=== PATIENT | female | born 1960 | race Hispanic/Latino ===

== ENCOUNTER 2017-08-08 21:20 | Inpatient (IN) | payer MEDICAID ==
[~2017-08-08] VITALS: Ht 154.9 cm; Wt 70.8 kg
[2017-08-08 22:19] LABS: BASOPHILS % (AUTO) 0.6 % (0.0-5.0); EOSINOPHILS % (AUTO) 1.2 % (0.0-8.0); LYMPHOCYTES % (AUTO) 21.8 % (21.0-51.0); MEAN CORPUSCULAR HEMOGLOBIN 28.5 pg (27.0-33.0); MEAN CORPUSCULAR HGB CONC 31.8 g/dL (32.0-36.0); MEAN CORPUSCULAR VOLUME 89.8 fL (79-99); MONOCYTES % (AUTO) 10.1 % (3.0-13.0); NEUTROPHILS % (AUTO) 66.3 % (40.0-77.0); PLATELET COUNT (AUTO) 83 K/uL (130-400); RED BLOOD CELL COUNT(AUTO) 1.98 MIL/uL (4.00-5.50); RED CELL DISTRIBUTION WIDTH 22.2 % (11.0-15.5); WHITE BLOOD COUNT (AUTO) 6.5 K/uL (4.8-10.8)
[2017-08-08 22:23] LABS: HEMATOCRIT 17.8 % (36-48)
[2017-08-08 22:32] LABS: CREATININE 0.8 mg/dL (0.5-1.5); POTASSIUM 3.2 mmol/L (3.5-5.1)
[2017-08-08 22:33] LABS: INR 1.61 (0.85-1.15); PROTHROMBIN TIME 16.7 SEC (9.6-11.6)
[2017-08-08 22:36] LABS: ALBUMIN 1.6 g/dL (3.5-5.0); TOTAL PROTEIN, SERUM 7.2 g/dL (6.0-8.3)
[2017-08-08] MEDS ORDERED: MORPHINE SULFATE 2 MG/ML 1ML SYG ONE (22:39)
[2017-08-08] MEDS ORDERED: ONDANSETRON HCL 4 MG/2 ML VIAL ONE (22:39)
[2017-08-08 23:19] LABS: BAND NEUTROPHILS % (MANUAL) 4 % (0-2); BASOPHILS % (MANUAL) 1 % (0-2); EOSINOPHILS % (MANUAL) 2 % (1-6); LYMPHOCYTES % (MANUAL) 17 % (22-44); MAN.DIFF COMMENT-IMPRESSION MANUAL DIFFERENTIAL; MONOCYTES % (MANUAL) 7 % (2-9); REACTIVE LYMPHOCYTES 2 % (0-0); SEGMENTED NEUTROPHILS % 67 % (40-70)
[2017-08-08 23:20] LABS: PLATELET MORPHOLOGY COMMENT DECREASED
[2017-08-08] MEDS ORDERED: SODIUM CHLORIDE 0.9% 1000ML 1,000 ML IV ONE (23:47)
[2017-08-09] MEDS ORDERED: POTASSIUM CHLORIDE 20 MEQ ERTAB PO ONE (00:49)
[2017-08-09 00:58] LABS: APPEARANCE,URINE Turbid (CLEAR); BILIRUBIN,URINE Negative (NEGATIVE); COLOR,URINE Dark Yellow (YELLOW); GLUCOSE, URINE (UA) Negative (NEGATIVE); KETONES,URINE Negative (NEGATIVE); LEUKOCYTE ESTERASE ,URINE Large (NEGATIVE); NITRATE,URINE Positive (NEGATIVE); OCCULT BLOOD,URINE Large (NEGATIVE); PROTEIN,URINE Negative (NEGATIVE)
[2017-08-09 01:04] LABS: BACTERIA,URINE Many /HPF (None Seen); MUCUS,URINE Rare LPF (None Seen); SQUAMOUS EPITHELIAL CELL,UR Few /LPF (0-2)
[2017-08-09 01:05] LABS: AMORPHOUS SEDIMENT,UR Few /LPF (None Seen)
[2017-08-09 03:00] VITALS: BP 113/60
[2017-08-09] MEDS ORDERED: TRAZ-144 PO (03:37)
[2017-08-09] MEDS ORDERED: SPIR25TA4 PO (03:37)
[2017-08-09] MEDS ORDERED: PROP40TA7 PO (03:37)
[2017-08-09] MEDS ORDERED: HYDR50SY PO (03:37)
[2017-08-09] MEDS ORDERED: FURO40TA5 PO (03:37)
[2017-08-09] MEDS ORDERED: LEVO50 PO (03:37)
[2017-08-09] MEDS: ONDANSETRON HCL 4 MG/2 ML VIAL IVP PRN (04:28)
[2017-08-09] MEDS: SODIUM CHLORIDE 0.9% 1000ML 1,000 ML IV SCH ×2 (04:29→10:10)
[2017-08-09] MEDS ORDERED: SODIUM CHLORIDE 0.9% 1000ML 1,000 ML IV SCH (04:30)
[2017-08-09] MEDS ORDERED: MORPHINE SULFATE 2 MG/ML 1ML SYG IVP PRN (04:30)
[2017-08-09 06:07] LABS: HEMATOCRIT 24.4 % (36-48); MEAN CORPUSCULAR HEMOGLOBIN 28.3 pg (27.0-33.0); MEAN CORPUSCULAR HGB CONC 33.5 g/dL (32.0-36.0); MEAN CORPUSCULAR VOLUME 84.5 fL (79-99); PLATELET COUNT (AUTO) 81 K/uL (130-400); RED BLOOD CELL COUNT(AUTO) 2.89 MIL/uL (4.00-5.50); WHITE BLOOD COUNT (AUTO) 6.7 K/uL (4.8-10.8)
[2017-08-09 06:18] LABS: ALBUMIN 1.4 g/dL (3.5-5.0); BILIRUBIN,TOTAL 5.2 mg/dL (0.2-1.0); CREATININE 0.7 mg/dL (0.5-1.5); POTASSIUM 3.5 mmol/L (3.5-5.1); TOTAL PROTEIN, SERUM 6.6 g/dL (6.0-8.3)
[2017-08-09 08:00] VITALS: BP 95/54
[2017-08-09] MEDS ORDERED: PANTOPRAZOLE 40 MG/VIAL IVP SCH (09:00)
[2017-08-09] MEDS ORDERED: MORPHINE SULFATE 4 MG/1ML SYG ONE (09:34)
[2017-08-09 11:00] VITALS: BP 102/54
[2017-08-09] MEDS ORDERED: OCTREOTIDE ACETATE 100 MCG/ML AMP SQ SCH (12:15)
[2017-08-09 12:35] LABS: HEMATOCRIT 26.6 % (36-48)
[2017-08-09] MEDS: PANTOPRAZOLE SODIUM 80 MG in SODIUM CHLORIDE 0.9% 100 ML IV SCH (13:02)
[2017-08-09] MEDS: OCTREOTIDE ACETATE 1,000 MCG in SODIUM CHLORIDE 0.9% 95 ML IV SCH (13:03)
[2017-08-09] MEDS: PSYLLIUM SEED 1 EACH PACKET PO SCH ×2 (14:56→23:20)
[2017-08-09 16:00] VITALS: BP 96/49
[2017-08-09] MEDS: MORPHINE SULFATE 4 MG/1ML SYG IVP PRN (19:34)
[2017-08-09 20:00] VITALS: BP 106/64
[2017-08-09 20:16] LABS: HEMATOCRIT 24.6 % (36-48)
[2017-08-09] MEDS: HYDROCORTISONE 25 MG SUPPOSITORY PR SCH (23:20)
[2017-08-10] VITALS (16 sets, daily range): BP systolic 90–117; BP diastolic 44–68
[2017-08-10] MEDS: SODIUM CHLORIDE 0.9% 1000ML 1,000 ML IV SCH ×2 (01:48→20:30)
[2017-08-10] MEDS: MORPHINE SULFATE 4 MG/1ML SYG IVP PRN ×3 (06:19→23:26)
[2017-08-10 07:24] LABS: HEMATOCRIT 23.9 % (36-48); MEAN CORPUSCULAR HEMOGLOBIN 27.6 pg (27.0-33.0); MEAN CORPUSCULAR HGB CONC 32.5 g/dL (32.0-36.0); MEAN CORPUSCULAR VOLUME 84.9 fL (79-99); PLATELET COUNT (AUTO) 83 K/uL (130-400); RED BLOOD CELL COUNT(AUTO) 2.82 MIL/uL (4.00-5.50); RED CELL DISTRIBUTION WIDTH 24.3 % (11.0-15.5); WHITE BLOOD COUNT (AUTO) 6.9 K/uL (4.8-10.8)
[2017-08-10 08:07] LABS: CREATININE 0.8 mg/dL (0.5-1.5)
[2017-08-10 08:09] LABS: BASOPHILS % (MANUAL) 3 % (0-2); EOSINOPHILS % (MANUAL) 1 % (1-6); LYMPHOCYTES % (MANUAL) 8 % (22-44); MAN.DIFF COMMENT-IMPRESSION MANUAL DIFFERENTIAL; MONOCYTES % (MANUAL) 2 % (2-9); PLATELET MORPHOLOGY COMMENT DECREASED; SEGMENTED NEUTROPHILS % 86 % (40-70)
[2017-08-10] MEDS: PANTOPRAZOLE SODIUM 80 MG in SODIUM CHLORIDE 0.9% 100 ML IV SCH (08:33)
[2017-08-10] MEDS: OCTREOTIDE ACETATE 1,000 MCG in SODIUM CHLORIDE 0.9% 95 ML IV SCH (08:35)
[2017-08-10] MEDS: PSYLLIUM SEED 1 EACH PACKET PO SCH ×3 (09:00→23:19)
[2017-08-10] MEDS ORDERED: PROPOFOL 10 MG/ML 20ML VIAL IV ONE (11:36)
[2017-08-10 12:30] LABS: HEMATOCRIT 25.3 % (36-48)
[2017-08-10] MEDS ORDERED: [UNRECOGNIZED DRUG - CODE] RC (13:12)
[2017-08-10] MEDS ORDERED: HYDROCORTISONE/PRAMOXINE 10 GM FOAM RC PRN (13:15)
[2017-08-10] MEDS: HYDROCORTISONE 25 MG SUPPOSITORY PR SCH ×2 (14:01→23:19)
[2017-08-10] MEDS: LEVOFLOXACIN 500 MG/D5W 100 ML 100 ML IV SCH (14:01)
[2017-08-10] MEDS: LACTULOSE 20 GM/30 ML UDCUP PO SCH ×2 (14:01→23:19)
[2017-08-10] MEDS ORDERED: PREG75 PO (16:13)
[2017-08-10 20:00] LABS: HEMATOCRIT 25.3 % (36-48)
[2017-08-10] MEDS: ONDANSETRON HCL 4 MG/2 ML VIAL IVP PRN (23:26)
[2017-08-11] VITALS (7 sets, daily range): BP systolic 116–129; BP diastolic 61–75
[2017-08-11] MEDS: SODIUM CHLORIDE 0.9% 1000ML 1,000 ML IV SCH ×2 (03:08→20:48)
[2017-08-11] MEDS: LACTULOSE 20 GM/30 ML UDCUP PO SCH ×4 (05:38→20:48)
[2017-08-11] MEDS: MORPHINE SULFATE 4 MG/1ML SYG IVP PRN ×2 (05:49→11:48)
[2017-08-11] MEDS: ONDANSETRON HCL 4 MG/2 ML VIAL IVP PRN ×3 (06:32→20:53)
[2017-08-11 06:57] LABS: MEAN CORPUSCULAR HEMOGLOBIN 29.2 pg (27.0-33.0); MEAN CORPUSCULAR VOLUME 85.6 fL (79-99); NUCLEATED RED BLOOD CELLS 0.1 % (0.0-0.19); PLATELET COUNT (AUTO) 97 K/uL (130-400); RED BLOOD CELL COUNT(AUTO) 2.92 MIL/uL (4.00-5.50); RED CELL DISTRIBUTION WIDTH 24.2 % (11.0-15.5); WHITE BLOOD COUNT (AUTO) 8.9 K/uL (4.8-10.8)
[2017-08-11 07:20] LABS: INR 1.64 (0.85-1.15); PROTHROMBIN TIME 17.1 SEC (9.6-11.6)
[2017-08-11] MEDS: PSYLLIUM SEED 1 EACH PACKET PO SCH ×3 (09:00→20:47)
[2017-08-11 09:34] LABS: ALBUMIN 1.6 g/dL (3.5-5.0); BILIRUBIN,TOTAL 5.3 mg/dL (0.2-1.0); CREATININE 0.8 mg/dL (0.5-1.5); POTASSIUM 3.4 mmol/L (3.5-5.1); TOTAL PROTEIN, SERUM 7.4 g/dL (6.0-8.3)
[2017-08-11] MEDS: PANTOPRAZOLE SODIUM 40 MG TABLET.DR PO SCH (10:32)
[2017-08-11] MEDS: HYDROCORTISONE 25 MG SUPPOSITORY PR SCH ×2 (10:32→20:48)
[2017-08-11] MEDS: LEVOFLOXACIN 500 MG/D5W 100 ML 100 ML IV SCH (10:40)
[2017-08-11 11:43] LABS: HEMATOCRIT 25.7 % (36-48)
[2017-08-11] MEDS ORDERED: WITCH HAZEL 1 PAD TP PRN (13:00)
[2017-08-11] MEDS ORDERED: HYDROMORPHONE 1 MG/1 ML AMP IVP PRN (13:15)
[2017-08-11] MEDS: HYDROMORPHONE HCL 0.5 MG/0.5 ML ML IVP PRN ×2 (14:17→18:51)
[2017-08-11 19:43] LABS: HEMATOCRIT 26.5 % (36-48)
[2017-08-12] MEDS: HYDROMORPHONE HCL 0.5 MG/0.5 ML ML IVP PRN ×5 (02:29→21:54)
[2017-08-12 03:15] VITALS: BP 130/76
[2017-08-12 03:18] LABS: HEMATOCRIT 25.7 % (36-48); MEAN CORPUSCULAR HEMOGLOBIN 27.7 pg (27.0-33.0); MEAN CORPUSCULAR HGB CONC 32.2 g/dL (32.0-36.0); PLATELET COUNT (AUTO) 84 K/uL (130-400); RED BLOOD CELL COUNT(AUTO) 2.98 MIL/uL (4.00-5.50); RED CELL DISTRIBUTION WIDTH 24.8 % (11.0-15.5); WHITE BLOOD COUNT (AUTO) 10.8 K/uL (4.8-10.8)
[2017-08-12 03:35] LABS: CREATININE 0.9 mg/dL (0.5-1.5); POTASSIUM 3.1 mmol/L (3.5-5.1)
[2017-08-12] MEDS: LACTULOSE 20 GM/30 ML UDCUP PO SCH ×3 (04:46→20:40)
[2017-08-12 04:53] LABS: BAND NEUTROPHILS % (MANUAL) 13 % (0-2); LYMPHOCYTES % (MANUAL) 12 % (22-44); MAN.DIFF COMMENT-IMPRESSION MANUAL DIFFERENTIAL; MONOCYTES % (MANUAL) 4 % (2-9); PLATELET MORPHOLOGY COMMENT DECREASED; SEGMENTED NEUTROPHILS % 71 % (40-70)
[2017-08-12] MEDS: ONDANSETRON HCL 4 MG/2 ML VIAL IVP PRN ×3 (06:48→21:54)
[2017-08-12 08:00] VITALS: BP 123/74
[2017-08-12] MEDS: PANTOPRAZOLE SODIUM 40 MG TABLET.DR PO SCH (09:53)
[2017-08-12] MEDS: PSYLLIUM SEED 1 EACH PACKET PO SCH ×3 (09:53→20:40)
[2017-08-12] MEDS: HYDROCORTISONE 25 MG SUPPOSITORY PR SCH ×3 (09:53→21:00)
[2017-08-12 11:00] VITALS: BP 120/71
[2017-08-12 11:06] LABS: HEMATOCRIT 25.7 % (36-48)
[2017-08-12] MEDS: LEVOFLOXACIN 500 MG/D5W 100 ML 100 ML IV SCH (11:23)
[2017-08-12] MEDS ORDERED: POTASSIUM CHLORIDE 10% ELIXIR 20 MEQ/15 ML UDCUP PO PRN (12:30)
[2017-08-12] MEDS: SODIUM CHLORIDE 0.9% 1000ML 1,000 ML IV SCH ×2 (13:11→20:40)
[2017-08-12 16:00] VITALS: BP 127/62
[2017-08-12] MEDS ORDERED: SODIUM CHLORIDE 0.9% 1000ML 1,000 ML IV ONE (16:11)
[2017-08-12] MEDS: POTASSIUM CHLORIDE 20MEQ/100ML 100 ML IV PRN ×2 (17:00→20:42)
[2017-08-12] MEDS: LIDOCAINE HCL-MPF 1% 2ML VIAL IVP PRN (17:00)
[2017-08-12 19:15] VITALS: BP 122/56
[2017-08-12 19:45] LABS: HEMATOCRIT 26.2 % (36-48)
[2017-08-12 23:15] VITALS: BP 118/58
[2017-08-13 03:15] VITALS: BP 122/58
[2017-08-13] MEDS: HYDROMORPHONE HCL 0.5 MG/0.5 ML ML IVP PRN ×6 (04:19→21:48)
[2017-08-13] MEDS: ONDANSETRON HCL 4 MG/2 ML VIAL IVP PRN ×2 (04:19→13:54)
[2017-08-13] MEDS: LACTULOSE 20 GM/30 ML UDCUP PO SCH ×3 (05:30→21:30)
[2017-08-13 06:27] LABS: BASOPHILS % (AUTO) 0.3 % (0.0-5.0); EOSINOPHILS % (AUTO) 0.6 % (0.0-8.0); HEMATOCRIT 24.8 % (36-48); LYMPHOCYTES % (AUTO) 12.6 % (21.0-51.0); MEAN CORPUSCULAR HEMOGLOBIN 29.4 pg (27.0-33.0); MEAN CORPUSCULAR HGB CONC 33.6 g/dL (32.0-36.0); MEAN CORPUSCULAR VOLUME 87.3 fL (79-99); MONOCYTES % (AUTO) 9.2 % (3.0-13.0); NEUTROPHILS % (AUTO) 77.3 % (40.0-77.0); PLATELET COUNT (AUTO) 94 K/uL (130-400); RED BLOOD CELL COUNT(AUTO) 2.84 MIL/uL (4.00-5.50); RED CELL DISTRIBUTION WIDTH 25.2 % (11.0-15.5); WHITE BLOOD COUNT (AUTO) 8.2 K/uL (4.8-10.8)
[2017-08-13 06:39] LABS: ALBUMIN 1.6 g/dL (3.5-5.0); BILIRUBIN,DIRECT 3.4 mg/dL (0.0-0.3); BILIRUBIN,TOTAL 4.9 mg/dL (0.2-1.0); CREATININE 0.9 mg/dL (0.5-1.5)
[2017-08-13] MEDS: PSYLLIUM SEED 1 EACH PACKET PO SCH ×3 (09:00→21:00)
[2017-08-13] MEDS: PANTOPRAZOLE SODIUM 40 MG TABLET.DR PO SCH (09:00)
[2017-08-13] MEDS: HYDROCORTISONE 25 MG SUPPOSITORY PR SCH ×2 (09:00→21:40)
[2017-08-13] MEDS: LEVOFLOXACIN 500 MG/D5W 100 ML 100 ML IV SCH (10:54)
[2017-08-13] MEDS ORDERED: PROMETHAZINE HCL 25 MG/ML 1ML AMPULE IM PRN (11:30)
[2017-08-13 11:56] VITALS: BP 142/71
[2017-08-13] MEDS: METOCLOPRAMIDE 10 MG/2 ML VIAL IVP SCH ×3 (13:55→21:40)
[2017-08-13 16:05] VITALS: BP 137/83
[2017-08-13] MEDS: SODIUM CHLORIDE 0.9% 1000ML 1,000 ML IV SCH (16:09)
[2017-08-13 19:14] VITALS: BP 113/70
[2017-08-13 23:15] VITALS: BP 115/75
[2017-08-14] MEDS: ONDANSETRON HCL 4 MG/2 ML VIAL IVP PRN ×2 (00:26→09:06)
[2017-08-14] MEDS: HYDROMORPHONE HCL 0.5 MG/0.5 ML ML IVP PRN ×2 (01:54→12:19)
[2017-08-14 03:00] VITALS: BP 115/66
[2017-08-14] MEDS: SODIUM CHLORIDE 0.9% 1000ML 1,000 ML IV SCH ×2 (03:20→17:30)
[2017-08-14 03:41] LABS: BASOPHILS % (AUTO) 0.4 % (0.0-5.0); EOSINOPHILS % (AUTO) 0.4 % (0.0-8.0); HEMATOCRIT 26.8 % (36-48); LYMPHOCYTES % (AUTO) 10.5 % (21.0-51.0); MEAN CORPUSCULAR HEMOGLOBIN 27.4 pg (27.0-33.0); MEAN CORPUSCULAR HGB CONC 31.9 g/dL (32.0-36.0); MEAN CORPUSCULAR VOLUME 85.8 fL (79-99); MONOCYTES % (AUTO) 11.7 % (3.0-13.0); NUCLEATED RED BLOOD CELLS 0.1 % (0.0-0.19); PLATELET COUNT (AUTO) 124 K/uL (130-400); RED BLOOD CELL COUNT(AUTO) 3.12 MIL/uL (4.00-5.50); RED CELL DISTRIBUTION WIDTH 26.2 % (11.0-15.5); WHITE BLOOD COUNT (AUTO) 11.9 K/uL (4.8-10.8)
[2017-08-14 03:54] LABS: ALBUMIN 1.7 g/dL (3.5-5.0); BILIRUBIN,DIRECT 4.3 mg/dL (0.0-0.3); BILIRUBIN,TOTAL 5.8 mg/dL (0.2-1.0); CREATININE 0.9 mg/dL (0.5-1.5); POTASSIUM 3.9 mmol/L (3.5-5.1); TOTAL PROTEIN, SERUM 7.6 g/dL (6.0-8.3)
[2017-08-14] MEDS: METOCLOPRAMIDE 10 MG/2 ML VIAL IVP SCH ×4 (04:17→21:30)
[2017-08-14] MEDS: LACTULOSE 20 GM/30 ML UDCUP PO SCH ×3 (04:17→21:30)
[2017-08-14] MEDS ORDERED: IOPAMIDOL-370 75 ML VIAL IV ONE (07:05)
[2017-08-14] MEDS ORDERED: DIATR MEGLU/DIATRIZOATE SODIUM 30 ML BOTTLE PO ONE (07:05)
[2017-08-14 08:00] VITALS: BP 146/81
[2017-08-14] MEDS: PANTOPRAZOLE SODIUM 40 MG TABLET.DR PO SCH (08:38)
[2017-08-14] MEDS: PSYLLIUM SEED 1 EACH PACKET PO SCH ×3 (08:38→21:31)
[2017-08-14] MEDS: HYDROCORTISONE 25 MG SUPPOSITORY PR SCH ×2 (08:39→21:31)
[2017-08-14] MEDS: LEVOFLOXACIN 500 MG/D5W 100 ML 100 ML IV SCH (08:40)
[2017-08-14 12:00] VITALS: BP 113/78
[2017-08-14 16:00] VITALS: BP 120/84
[2017-08-14 19:00] VITALS: BP 132/73
[2017-08-14] MEDS: METRONIDAZOLE 500MG/100ML BAG 100 ML IV SCH ×2 (19:39→21:31)
[2017-08-14] MEDS: SPIRONOLACTONE 25 MG TAB PO SCH (21:30)
[2017-08-14] MEDS: RIFAXIMIN 550 MG TABLET PO SCH (21:30)
[2017-08-14] MEDS: HYDROCODONE/ACETAMINOPHEN 5/325 MG TAB PO PRN (21:30)
[2017-08-14 23:00] VITALS: BP 114/66
[2017-08-15] MEDS ORDERED: HYDROMORPHONE HCL 2 MG/ML VIAL ONE (01:35)
[2017-08-15 03:30] VITALS: BP 102/54
[2017-08-15 03:48] LABS: CREATININE 0.8 mg/dL (0.5-1.5); POTASSIUM 3.8 mmol/L (3.5-5.1)
[2017-08-15] MEDS: LACTULOSE 20 GM/30 ML UDCUP PO SCH ×3 (05:38→20:23)
[2017-08-15] MEDS: LEVOTHYROXINE 50 MCG TABLET PO SCH (05:38)
[2017-08-15] MEDS: METRONIDAZOLE 500MG/100ML BAG 100 ML IV SCH ×3 (05:38→20:23)
[2017-08-15] MEDS: SODIUM CHLORIDE 0.9% 1000ML 1,000 ML IV SCH ×2 (06:18→13:26)
[2017-08-15 06:23] LABS: BASOPHILS % (AUTO) 0.1 % (0.0-5.0); EOSINOPHILS % (AUTO) 0.5 % (0.0-8.0); HEMATOCRIT 23.1 % (36-48); LYMPHOCYTES % (AUTO) 13.2 % (21.0-51.0); MEAN CORPUSCULAR HEMOGLOBIN 28.4 pg (27.0-33.0); MEAN CORPUSCULAR HGB CONC 32.8 g/dL (32.0-36.0); MEAN CORPUSCULAR VOLUME 86.6 fL (79-99); MONOCYTES % (AUTO) 8.7 % (3.0-13.0); NEUTROPHILS % (AUTO) 77.5 % (40.0-77.0); PLATELET COUNT (AUTO) 75 K/uL (130-400); RED BLOOD CELL COUNT(AUTO) 2.67 MIL/uL (4.00-5.50); RED CELL DISTRIBUTION WIDTH 27.3 % (11.0-15.5); WHITE BLOOD COUNT (AUTO) 12.3 K/uL (4.8-10.8)
[2017-08-15] MEDS: METOCLOPRAMIDE 10 MG/2 ML VIAL IVP SCH ×4 (06:35→20:21)
[2017-08-15 08:00] VITALS: BP 107/55
[2017-08-15] MEDS: PANTOPRAZOLE SODIUM 40 MG TABLET.DR PO SCH (09:17)
[2017-08-15] MEDS: PSYLLIUM SEED 1 EACH PACKET PO SCH ×3 (09:18→20:21)
[2017-08-15] MEDS: HYDROCORTISONE 25 MG SUPPOSITORY PR SCH ×2 (09:18→20:21)
[2017-08-15] MEDS: SPIRONOLACTONE 25 MG TAB PO SCH ×2 (09:19→20:21)
[2017-08-15] MEDS: RIFAXIMIN 550 MG TABLET PO SCH ×2 (09:20→20:21)
[2017-08-15] MEDS: HYDROCODONE/ACETAMINOPHEN 5/325 MG TAB PO PRN ×3 (09:20→21:46)
[2017-08-15] MEDS: FUROSEMIDE 40 MG TABLET PO SCH (09:22)
[2017-08-15] MEDS: LEVOFLOXACIN 500 MG/D5W 100 ML 100 ML IV SCH (09:44)
[2017-08-15 11:27] VITALS: BP 113/57
[2017-08-15 16:00] VITALS: BP 123/64
[2017-08-15 20:00] VITALS: BP 100/46
[2017-08-16] VITALS: BP 120/62
[2017-08-16] MEDS ORDERED: HYDROMORPHONE HCL 2 MG/ML VIAL IVP ONE (01:00)
[2017-08-16] MEDS ORDERED: HYDROMORPHONE HCL 2 MG/ML VIAL ONE (01:15)
[2017-08-16] MEDS: SODIUM CHLORIDE 0.9% 1000ML 1,000 ML IV SCH ×2 (03:43→10:25)
[2017-08-16 04:00] VITALS: BP 113/62
[2017-08-16 04:28] LABS: BASOPHILS % (AUTO) 0.1 % (0.0-5.0); EOSINOPHILS % (AUTO) 0.4 % (0.0-8.0); HEMATOCRIT 21.8 % (36-48); MEAN CORPUSCULAR HEMOGLOBIN 30.2 pg (27.0-33.0); MEAN CORPUSCULAR HGB CONC 35.1 g/dL (32.0-36.0); MEAN CORPUSCULAR VOLUME 85.9 fL (79-99); NEUTROPHILS % (AUTO) 78.5 % (40.0-77.0); PLATELET COUNT (AUTO) 74 K/uL (130-400); RED BLOOD CELL COUNT(AUTO) 2.54 MIL/uL (4.00-5.50); RED CELL DISTRIBUTION WIDTH 26.8 % (11.0-15.5); WHITE BLOOD COUNT (AUTO) 9.4 K/uL (4.8-10.8)
[2017-08-16 04:35] LABS: CREATININE 0.8 mg/dL (0.5-1.5)
[2017-08-16 05:00] LABS: POTASSIUM 2.4 mmol/L (3.5-5.1)
[2017-08-16] MEDS: LACTULOSE 20 GM/30 ML UDCUP PO SCH ×2 (05:10→13:56)
[2017-08-16] MEDS: METOCLOPRAMIDE 10 MG/2 ML VIAL IVP SCH ×3 (05:10→16:15)
[2017-08-16] MEDS: LEVOTHYROXINE 50 MCG TABLET PO SCH (05:11)
[2017-08-16] MEDS: METRONIDAZOLE 500MG/100ML BAG 100 ML IV SCH (05:11)
[2017-08-16] MEDS: POTASSIUM CHLORIDE 20 MEQ ERTAB PO PRN ×2 (05:11→16:13)
[2017-08-16 08:00] VITALS: BP 122/83
[2017-08-16] MEDS: FUROSEMIDE 40 MG TABLET PO SCH (09:59)
[2017-08-16] MEDS: PSYLLIUM SEED 1 EACH PACKET PO SCH ×2 (10:00→14:00)
[2017-08-16] MEDS: SPIRONOLACTONE 25 MG TAB PO SCH (10:00)
[2017-08-16] MEDS: HYDROCORTISONE 25 MG SUPPOSITORY PR SCH (10:00)
[2017-08-16] MEDS: PANTOPRAZOLE SODIUM 40 MG TABLET.DR PO SCH (10:00)
[2017-08-16] MEDS: RIFAXIMIN 550 MG TABLET PO SCH (10:00)
[2017-08-16] MEDS: HYDROCODONE/ACETAMINOPHEN 5/325 MG TAB PO PRN (10:00)
[2017-08-16] MEDS: LIDOCAINE HCL-MPF 1% 2ML VIAL IVP PRN ×2 (10:01→11:40)
[2017-08-16] MEDS: POTASSIUM CHLORIDE 20MEQ/100ML 100 ML IV PRN ×2 (10:01→11:36)
[2017-08-16 11:00] VITALS: BP 115/65
[2017-08-16] MEDS ORDERED: NITROFURANTOIN MONOHYD/M-CRYST 100 MG CAPSULE PO SCH (12:45)
[2017-08-16] MEDS ORDERED: RIFA550T PO (15:50)
[2017-08-16] MEDS ORDERED: PANT40TA PO (15:50)
[2017-08-16] MEDS ORDERED: NITR100C4 PO (15:50)
[2017-08-16] MEDS ORDERED: LACT10SO9 PO (15:50)
[2017-08-16 16:00] VITALS: BP 121/62
== END 2017-08-16 19:39 | disposition home or self-care (01) | DRG 241 ==
LOC: EDH 21:20 → EDHIP 21:21 → OBSVTOIN 21:21 → 3AH 08-09 01:55
PROVIDERS: ADMIT Family Medicine; ATTEND Family Medicine
PROC: 30233N1 Transfusion of Nonautologous Red Blood Cells into Peripheral Vein, Percutaneous Approach (ICD-10-PCS; principal; 2017-08-10)
PROC: 0DJ08ZZ Inspection of Upper Intestinal Tract, Via Natural or Artificial Opening Endoscopic (ICD-10-PCS; 2017-08-10)
DX: K29.71 Gastritis, unspecified, with bleeding (principal); E43 Unspecified severe protein-calorie malnutrition; K56.609 Unspecified intestinal obstruction, unspecified as to partial versus complete obstruction; I85.10 Secondary esophageal varices without bleeding; E72.20 Disorder of urea cycle metabolism, unspecified; D62 Acute posthemorrhagic anemia; K70.30 Alcoholic cirrhosis of liver without ascites; M19.90 Unspecified osteoarthritis, unspecified site; E87.6 Hypokalemia; B96.20 Unspecified Escherichia coli [E. coli] as the cause of diseases classified elsewhere; D50.0 Iron deficiency anemia secondary to blood loss (chronic); N39.0 Urinary tract infection, site not specified; Z88.0 Allergy status to penicillin; Z68.29 Body mass index [BMI] 29.0-29.9, adult
CPT/HCPCS: 36415; 71010; 74000; 74176; 74178; 76705; 80048; 80053; 80076; 81001; 82105; 82140; 82270; 82948; 83690; 83735; 84132; 85007; 85025; 85027; 85610; 85730; 86850; 86900; 86901; 86922; 87088; 87186; 88313; 99291; C9113; J1170; J1956; J2270; J2354; J2405; J2704; J2765; J3480; J3490; J7030; P9016; Q9963; Q9967

== ENCOUNTER → 2017-08-29 | Outpatient (CLI) | payer MEDICAID ==
[~2017-08-29] MED LIST: FURO40TA5 PO; HYDR-3422 PO; HYDR50SY PO; LACT10SO9 PO; LEVO50 PO; NITR100C4 PO; PANT40TA PO; PREG75 PO; PROP40TA7 PO; RIFA550T PO; SPIR25TA4 PO; TRAZ-144 PO; [UNRECOGNIZED DRUG - CODE] RC
[2017-08-29 15:00] LABS: LYMPHOCYTES % (AUTO) 32.2 % (21.0-51.0); MEAN CORPUSCULAR HEMOGLOBIN 29.2 pg (27.0-33.0); MEAN CORPUSCULAR HGB CONC 33.2 g/dL (32.0-36.0); MEAN CORPUSCULAR VOLUME 88.1 fL (79-99); MONOCYTES % (AUTO) 8.3 % (3.0-13.0); NEUTROPHILS % (AUTO) 56.5 % (40.0-77.0); PLATELET COUNT (AUTO) 98 K/uL (130-400); RED BLOOD CELL COUNT(AUTO) 2.73 MIL/uL (4.00-5.50); RED CELL DISTRIBUTION WIDTH 28.6 % (11.0-15.5)
[2017-08-29 15:09] LABS: INR 1.55 (0.85-1.15); PROTHROMBIN TIME 16.1 SEC (9.6-11.6)
[2017-08-29 15:12] LABS: ALBUMIN 1.7 g/dL (3.5-5.0); CREATININE 0.9 mg/dL (0.5-1.5); TOTAL PROTEIN, SERUM 7.7 g/dL (6.0-8.3)
[2017-08-29 15:36] LABS: POTASSIUM 2.8 mmol/L (3.5-5.1)
== END | disposition home or self-care (01) ==
LOC: LAB 14:07
PROVIDERS: ATTEND Internal Medicine Gastroenterology
DX: K70.31 Alcoholic cirrhosis of liver with ascites (principal)
CPT/HCPCS: 36415; 80053; 82105; 85025; 85610

== ENCOUNTER 2017-09-10 14:09 | Inpatient (IN) | payer MEDICAID ==
[~2017-09-10] VITALS: Ht 154.9 cm; Wt 79.8 kg
[~2017-09-10 14:09] MED LIST changes: -HYDR-3422 PO
[2017-09-10 15:16] LABS: BASOPHILS % (AUTO) 0.6 % (0.0-5.0); EOSINOPHILS % (AUTO) 2.8 % (0.0-8.0); HEMATOCRIT 22.1 % (36-48); LYMPHOCYTES % (AUTO) 25.8 % (21.0-51.0); MEAN CORPUSCULAR HEMOGLOBIN 30.1 pg (27.0-33.0); MEAN CORPUSCULAR HGB CONC 34.1 g/dL (32.0-36.0); MEAN CORPUSCULAR VOLUME 88.3 fL (79-99); MONOCYTES % (AUTO) 7.7 % (3.0-13.0); NEUTROPHILS % (AUTO) 63.1 % (40.0-77.0); PLATELET COUNT (AUTO) 78 K/uL (130-400); RED BLOOD CELL COUNT(AUTO) 2.51 MIL/uL (4.00-5.50); RED CELL DISTRIBUTION WIDTH 26.6 % (11.0-15.5); WHITE BLOOD COUNT (AUTO) 4.5 K/uL (4.8-10.8)
[2017-09-10] MEDS ORDERED: MORPHINE SULFATE 2 MG/ML 1ML SYG ONE ×2 (15:23→21:44)
[2017-09-10] MEDS ORDERED: ONDANSETRON HCL 4 MG/2 ML VIAL ONE (15:23)
[2017-09-10 15:25] LABS: CARBON DIOXIDE 32 mmol/L (21-32); CHLORIDE 97 mmol/L (101-111); CREATININE 0.8 mg/dL (0.5-1.5); GLOMERULAR FILTR. RATE CALC 79 mL/min (>60); GLUCOSE,RANDOM 97 mg/dL (70-105); SODIUM SERUM 132 mmol/L (136-145); UREA NITROGEN, BLOOD 5 mg/dL (7-18)
[2017-09-10 15:38] LABS: ALANINE AMINOTRANSFERASE 19 U/L (12-78); ALBUMIN 1.5 g/dL (3.5-5.0); ASPARTATE AMINOTRANSFERASE 43 U/L (10-37); BILIRUBIN,TOTAL 3.7 mg/dL (0.2-1.0); CREATINE KINASE MB < 0.5 ng/mL (0.5-3.6); CREATINE KINASE, TOTAL 41 U/L (21-232); TOTAL PROTEIN, SERUM 7.1 g/dL (6.0-8.3)
[2017-09-10 15:46] LABS: B-TYPE NATRIURETIC PEPTIDE 40 pg/mL (0-100)
[2017-09-10] MEDS ORDERED: POTASSIUM CHLORIDE 20 MEQ ERTAB PO ONE (17:55)
[2017-09-10] MEDS ORDERED: MORPHINE SULFATE 2 MG/ML 1ML SYG IVP PRN (20:00)
[2017-09-11] MEDS ORDERED: HYDRALAZINE HCL 20 MG/ML VIAL IV PRN (04:15)
[2017-09-11] MEDS ORDERED: ACETAMINOPHEN 325 MG TAB PO PRN (04:15)
[2017-09-11] MEDS ORDERED: ONDANSETRON HCL 4 MG/2 ML VIAL IV PRN (04:15)
[2017-09-11] MEDS: POTASSIUM CHLORIDE 20 MEQ ERTAB PO SCH (04:15)
[2017-09-11] MEDS ORDERED: FUROSEMIDE 40 MG TABLET ONE (04:47)
[2017-09-11] MEDS ORDERED: POTASSIUM CHLORIDE 20 MEQ ERTAB PO ONE (04:47)
[2017-09-11] MEDS ORDERED: MORPHINE SULFATE 8 MG/ML VIAL ONE (04:48)
[2017-09-11] MEDS ORDERED: FAMOTIDINE 20MG TAB 20 MG TAB ONE (09:47)
[2017-09-11 10:29] LABS: APPEARANCE BODY FLUID CLEAR (CLEAR); BODY FLUID RBC 142 /cu. mm.; BODY FLUID WBC 112 /cu. mm.; COLOR,BODY FLUID YELLOW (LT YELLOW); SPECIMENTYPE,BODY FLUID ASCITES; TOTAL VOLUME,BODY FLUID 100 mL
[2017-09-11 10:34] LABS: BF LYMPHOCYTE 45 %; BF MESOTHELIAL 44 %; BF MONOCYTE 6 %
[2017-09-11 17:00] VITALS: BP 116/64
[2017-09-11 19:00] VITALS: BP 113/60
[2017-09-11] MEDS: FAMOTIDINE 20MG TAB 20 MG TAB PO SCH (21:00)
[2017-09-11] MEDS: MORPHINE SULFATE 2 MG/ML 1ML SYG IV PRN (21:25)
[2017-09-11 23:00] VITALS: BP 111/56
[2017-09-12 03:00] VITALS: BP 104/53
[2017-09-12 04:06] LABS: BASOPHILS % (AUTO) 1.3 % (0.0-5.0); EOSINOPHILS % (AUTO) 4.4 % (0.0-8.0); LYMPHOCYTES % (AUTO) 33.4 % (21.0-51.0); MEAN CORPUSCULAR HEMOGLOBIN 29.8 pg (27.0-33.0); MEAN CORPUSCULAR HGB CONC 33.9 g/dL (32.0-36.0); MEAN CORPUSCULAR VOLUME 87.8 fL (79-99); MONOCYTES % (AUTO) 9.1 % (3.0-13.0); NEUTROPHILS % (AUTO) 51.8 % (40.0-77.0); NUCLEATED RED BLOOD CELLS 0.1 % (0.0-0.19); PLATELET COUNT (AUTO) 66 K/uL (130-400); RED BLOOD CELL COUNT(AUTO) 2.18 MIL/uL (4.00-5.50); RED CELL DISTRIBUTION WIDTH 25.9 % (11.0-15.5); WHITE BLOOD COUNT (AUTO) 4.3 K/uL (4.8-10.8)
[2017-09-12 04:14] LABS: CREATININE 0.8 mg/dL (0.5-1.5)
[2017-09-12] MEDS: FUROSEMIDE 40 MG TABLET PO SCH ×2 (04:15→14:55)
[2017-09-12 04:16] LABS: HEMATOCRIT 19.1 % (36-48)
[2017-09-12] MEDS ORDERED: LIDOCAINE HCL-MPF 1% 2ML VIAL IVP PRN (05:00)
[2017-09-12] MEDS ORDERED: POTASSIUM CHLORIDE 10% ELIXIR 20 MEQ/15 ML UDCUP PO PRN (05:00)
[2017-09-12] MEDS ORDERED: POTASSIUM CHLORIDE 20MEQ/100ML 100 ML IV PRN (05:00)
[2017-09-12] MEDS ORDERED: SODIUM CHLORIDE 0.9% 250 ML IV ONE (05:23)
[2017-09-12 07:00] VITALS: BP 101/51
[2017-09-12] MEDS ORDERED: HYDR-3422 PO (08:15)
[2017-09-12] MEDS: FAMOTIDINE 20MG TAB 20 MG TAB PO SCH ×2 (10:29→22:07)
[2017-09-12] MEDS: POTASSIUM CHLORIDE 20 MEQ ERTAB PO PRN (11:41)
[2017-09-12 11:45] VITALS: BP 100/51
[2017-09-12] MEDS: POTASSIUM CHLORIDE 20 MEQ ERTAB PO SCH (14:55)
[2017-09-12] MEDS: MORPHINE SULFATE 2 MG/ML 1ML SYG IV PRN (15:00)
[2017-09-12 15:17] LABS: HEMATOCRIT 23.1 % (36-48)
[2017-09-12 16:00] VITALS: BP 104/55
[2017-09-12] MEDS: PROPRANOLOL HCL 20 MG TAB PO SCH (17:20)
[2017-09-12] MEDS: LACTULOSE 20 GM/30 ML UDCUP PO SCH ×2 (17:20→22:07)
[2017-09-12 19:00] VITALS: BP 100/50
[2017-09-12] MEDS ORDERED: TRAZODONE HCL 50 MG TAB PO SCH (21:00)
[2017-09-12] MEDS: PREGABALIN 75 MG CAPSULE PO SCH (22:06)
[2017-09-12] MEDS: RIFAXIMIN 550 MG TABLET PO SCH (22:06)
[2017-09-12] MEDS: NITROFURANTOIN MONOHYD/M-CRYST 100 MG CAPSULE PO SCH (22:07)
[2017-09-12] MEDS: SPIRONOLACTONE 25 MG TAB PO SCH (22:11)
[2017-09-12 23:00] VITALS: BP 85/51
[2017-09-13 03:00] VITALS: BP 97/60
[2017-09-13] MEDS: PROPRANOLOL HCL 20 MG TAB PO SCH (03:30)
[2017-09-13] MEDS ORDERED: LEVOTHYROXINE 50 MCG TABLET PO SCH (06:30)
[2017-09-13 07:00] VITALS: BP 91/50
[2017-09-13 08:17] LABS: HEMATOCRIT 28.4 % (36-48); MEAN CORPUSCULAR HEMOGLOBIN 29.4 pg (27.0-33.0); MEAN CORPUSCULAR HGB CONC 33.3 g/dL (32.0-36.0); MEAN CORPUSCULAR VOLUME 88.2 fL (79-99); PLATELET COUNT (AUTO) 93 K/uL (130-400); RED BLOOD CELL COUNT(AUTO) 3.23 MIL/uL (4.00-5.50); RED CELL DISTRIBUTION WIDTH 24.2 % (11.0-15.5); WHITE BLOOD COUNT (AUTO) 5.6 K/uL (4.8-10.8)
[2017-09-13 08:27] LABS: CREATININE 0.7 mg/dL (0.5-1.5)
[2017-09-13] MEDS: FUROSEMIDE 40 MG TABLET PO SCH ×2 (09:00→14:44)
[2017-09-13] MEDS ORDERED: PANTOPRAZOLE SODIUM 40 MG TABLET.DR PO SCH (09:00)
[2017-09-13 11:00] VITALS: BP 101/58
[2017-09-13] MEDS: POTASSIUM CHLORIDE 20 MEQ ERTAB PO PRN ×3 (12:00→15:32)
[2017-09-13] MEDS: PREGABALIN 75 MG CAPSULE PO SCH (12:00)
[2017-09-13] MEDS: NITROFURANTOIN MONOHYD/M-CRYST 100 MG CAPSULE PO SCH (12:00)
[2017-09-13] MEDS: SPIRONOLACTONE 25 MG TAB PO SCH (12:01)
[2017-09-13] MEDS: RIFAXIMIN 550 MG TABLET PO SCH (12:01)
[2017-09-13] MEDS: FAMOTIDINE 20MG TAB 20 MG TAB PO SCH (12:02)
[2017-09-13] MEDS: LACTULOSE 20 GM/30 ML UDCUP PO SCH (12:05)
[2017-09-13 16:00] VITALS: BP 102/56
== END 2017-09-13 19:30 | disposition home or self-care (01) ==
LOC: EDH 14:09 → EDHIP 14:10 → 3DH 09-11 16:27
PROVIDERS: ADMIT Family Medicine; ATTEND Family Medicine
PROC: 0W9G3ZZ Drainage of Peritoneal Cavity, Percutaneous Approach (ICD-10-PCS; principal; 2017-09-11)
PROC: 30233N1 Transfusion of Nonautologous Red Blood Cells into Peripheral Vein, Percutaneous Approach (ICD-10-PCS; 2017-09-11)
DX: K74.60 Unspecified cirrhosis of liver (principal); E43 Unspecified severe protein-calorie malnutrition; D61.818 Other pancytopenia; R18.8 Other ascites; E87.70 Fluid overload, unspecified; E87.6 Hypokalemia; E03.9 Hypothyroidism, unspecified; Z88.1 Allergy status to other antibiotic agents; Z88.0 Allergy status to penicillin
CPT/HCPCS: 36415; 36430; 49083; 74176; 80048; 80053; 82550; 82553; 83880; 84484; 85025; 85027; 86850; 86900; 86901; 86922; 87071; 87205; 89051; 93005; 93970; J2270; J2405; J3480; J3490; J7030; P9016

== ENCOUNTER → 2017-10-28 | Outpatient (CLI) | payer MEDICAID ==
[~2017-10-28] MED LIST changes: +HYDR-3422 PO; -HYDR50SY PO
[2017-10-28 09:57] LABS: BASOPHILS % (AUTO) 1.5 % (0.0-5.0); EOSINOPHILS % (AUTO) 3.2 % (0.0-8.0); HEMATOCRIT 21.7 % (36-48); LYMPHOCYTES % (AUTO) 34.3 % (21.0-51.0); MEAN CORPUSCULAR HEMOGLOBIN 31.9 pg (27.0-33.0); MEAN CORPUSCULAR HGB CONC 34.9 g/dL (32.0-36.0); MEAN CORPUSCULAR VOLUME 91.4 fL (79-99); MONOCYTES % (AUTO) 10.7 % (3.0-13.0); NEUTROPHILS % (AUTO) 50.3 % (40.0-77.0); PLATELET COUNT (AUTO) 108 K/uL (130-400); RED BLOOD CELL COUNT(AUTO) 2.38 MIL/uL (4.00-5.50); WHITE BLOOD COUNT (AUTO) 3.4 K/uL (4.8-10.8)
[2017-10-28 10:20] LABS: ALBUMIN 1.6 g/dL (3.5-5.0); BILIRUBIN,TOTAL 2.6 mg/dL (0.2-1.0); CREATININE 0.8 mg/dL (0.5-1.5); POTASSIUM 3.1 mmol/L (3.5-5.1); TOTAL PROTEIN, SERUM 7.6 g/dL (6.0-8.3)
[2017-10-28 10:26] LABS: INR 1.45 (0.85-1.15); PROTHROMBIN TIME 15.1 SEC (9.6-11.6)
[2017-10-29 10:11] LABS: HEPATITIS A ANTIBODY IGM Negative (Negative)
[2017-10-29 10:15] LABS: HEPATITIS Bs ANTIGEN SCREEN P Negative (Negative)
[2017-10-29 10:16] LABS: HEPATITIS B CORE IGM Negative (Negative)
== END | disposition home or self-care (01) ==
LOC: RAH 09:19
PROVIDERS: ATTEND Internal Medicine Gastroenterology
DX: K70.31 Alcoholic cirrhosis of liver with ascites (principal)
CPT/HCPCS: 36415; 76705; 80053; 80074; 85025; 85610; 86704; 86706; 86708

== ENCOUNTER 2018-08-25 13:35 | Emergency (ER) | payer MEDICAID ==
[~2018-08-25 13:35] MED LIST changes: -SPIR25TA4 PO; +SPIR25TA6 PO; -TRAZ-144 PO; +TRAZ-185 PO
[2018-08-25] MEDS ORDERED: ONDANSETRON HCL 4 MG/2 ML VIAL ONE (15:14)
[2018-08-25] MEDS ORDERED: MORPHINE SULFATE 4 MG/1ML SYG ONE (15:15)
== END 2018-08-25 16:37 | disposition home or self-care (01) ==
LOC: EDH 13:35
DX: S52.591A Other fractures of lower end of right radius, initial encounter for closed fracture (principal); S09.8XXA Other specified injuries of head, initial encounter; E07.9 Disorder of thyroid, unspecified; I10 Essential (primary) hypertension; K74.60 Unspecified cirrhosis of liver; Z88.0 Allergy status to penicillin; Z88.1 Allergy status to other antibiotic agents; W18.39XA Other fall on same level, initial encounter; Y93.01 Activity, walking, marching and hiking; Y92.098 Other place in other non-institutional residence as the place of occurrence of the external cause; Y99.8 Other external cause status
CPT/HCPCS: 25605; 70450; 73100; 73110; 96374; 96375; 99284; J2270; J2405

== ENCOUNTER 2019-04-06 20:57 | Inpatient (IN) | payer MEDICAID ==
[~2019-04-06] VITALS: Ht 154.9 cm; Wt 62.7 kg
[2019-04-06 21:21] LABS: BASOPHILS % (AUTO) 0.2 % (0.0-5.0); EOSINOPHILS % (AUTO) 0.8 % (0.0-8.0); HEMATOCRIT 33.8 % (36-48); MEAN CORPUSCULAR HEMOGLOBIN 25.1 pg (27.0-33.0); MEAN CORPUSCULAR HGB CONC 31.2 g/dL (32.0-36.0); MEAN CORPUSCULAR VOLUME 80.2 fL (79-99); MONOCYTES % (AUTO) 6.8 % (3.0-13.0); NEUTROPHILS % (AUTO) 72.2 % (40.0-77.0); NUCLEATED RED BLOOD CELLS 0.1 % (0.0-0.19); PLATELET COUNT (AUTO) 44 K/uL (130-400); RED BLOOD CELL COUNT(AUTO) 4.21 MIL/uL (4.00-5.50); RED CELL DISTRIBUTION WIDTH 23.2 % (11.0-15.5); WHITE BLOOD COUNT (AUTO) 7.7 K/uL (4.8-10.8)
[2019-04-06 21:31] LABS: CREATININE 0.6 mg/dL (0.5-1.5); POTASSIUM 3.1 mmol/L (3.5-5.1)
[2019-04-06 21:33] LABS: INR 1.1 (0.85-1.15); PARTIAL THROMBOPLASTIN TIME 22.6 SEC (26.3-35.5); PROTHROMBIN TIME 11.5 SEC (9.6-11.6)
[2019-04-06 21:35] LABS: B-TYPE NATRIURETIC PEPTIDE 836 pg/mL (0-100)
[2019-04-06 21:36] LABS: ALBUMIN 2.9 g/dL (3.5-5.0); BILIRUBIN,TOTAL 2.5 mg/dL (0.2-1.0); TOTAL PROTEIN, SERUM 6.9 g/dL (6.0-8.3)
[2019-04-06 21:46] LABS: AMYLASE 86 U/L (25-115); LIPASE 186 U/L (114-286)
[2019-04-06 21:58] LABS: APPEARANCE,URINE Clear (CLEAR); BILIRUBIN,URINE Negative (NEGATIVE); COLOR,URINE Yellow (YELLOW); GLUCOSE, URINE (UA) Negative (NEGATIVE); KETONES,URINE Negative (NEGATIVE); LEUKOCYTE ESTERASE ,URINE Moderate (NEGATIVE); NITRATE,URINE Negative (NEGATIVE); OCCULT BLOOD,URINE Negative (NEGATIVE); PH,URINE 6.5 (5.0-8.0); PROTEIN,URINE Negative (NEGATIVE)
[2019-04-06 22:06] LABS: AMPHET/METH SCREEN,URINE NEGATIVE (NEGATIVE); BARBITURATE SCREEN, URINE NEGATIVE (NEGATIVE); BENZODIAZEPINES SCREEN,URINE NEGATIVE (NEGATIVE); CANNABINOID SCREEN,URINE NEGATIVE (NEGATIVE); COCAINE SCREEN,URINE NEGATIVE (NEGATIVE); OPIATE SCREEN,URINE NEGATIVE (NEGATIVE); PHENCYCLIDINE SCREEN,URINE NEGATIVE (NEGATIVE)
[2019-04-06 22:07] LABS: BACTERIA,URINE Few /HPF (None Seen)
[2019-04-06] MEDS ORDERED: FUROSEMIDE 10 MG/ML 2ML VIAL ONE (22:59)
[2019-04-06] MEDS ORDERED: NITROGLYCERIN 1GM/1 INCH PACKET TD ONE (23:00)
[2019-04-06] MEDS ORDERED: POTASSIUM CHLORIDE 20 MEQ ERTAB PO ONE (23:00)
[2019-04-07] MEDS ORDERED: POTASSIUM CHLORIDE 10% ELIXIR 20 MEQ/15 ML UDCUP PO PRN (02:30)
[2019-04-07] MEDS: FUROSEMIDE 10 MG/ML 2ML VIAL IV SCH ×3 (02:30→18:27)
[2019-04-07] MEDS ORDERED: LIDOCAINE HCL-MPF 1% 2ML VIAL IVP PRN (02:30)
[2019-04-07] MEDS ORDERED: POTASSIUM CHLORIDE 20MEQ/100ML 100 ML IV PRN (02:30)
[2019-04-07 02:50] VITALS: BP 130/67
[2019-04-07] MEDS ORDERED: ALBU8.5H8 IH (03:07)
--- NOTE | 2019-04-07 05:25 | NUR ---
STATUS Pt aao x 3,denies pain or sob.Up with assist,voided in the bathroom.Instructed to measure urine,call for assistance,verbalized understanding.
[2019-04-07 08:00] VITALS: BP 104/62
[2019-04-07] MEDS: FAMOTIDINE 20MG TAB 20 MG TAB PO SCH ×2 (09:10→20:26)
[2019-04-07] MEDS: POTASSIUM CHLORIDE 20 MEQ ERTAB PO PRN ×3 (09:11→18:25)
[2019-04-07] MEDS ORDERED: ONDANSETRON HCL 4 MG/2 ML VIAL IV PRN (10:45)
[2019-04-07] MEDS ORDERED: PHARMACY COMMUNICATION MISC PRN (10:45)
[2019-04-07] MEDS ORDERED: LORAZEPAM 2 MG/ML 1 ML VIAL IVP PRN ×2 (10:45)
[2019-04-07] MEDS ORDERED: ACETAMINOPHEN EXTRA STRENGTH 500 MG TABLET PO PRN (10:45)
[2019-04-07] MEDS ORDERED: CHLORDIAZEPOXIDE HCL 25 MG CAP PO PRN ×2 (10:45)
[2019-04-07] MEDS ORDERED: PROMETHAZINE HCL 25 MG TABLET PO PRN (10:45)
[2019-04-07 11:58] VITALS: BP 109/64
[2019-04-07] MEDS: LACTULOSE 20 GM/30 ML UDCUP PO SCH ×2 (12:11→18:30)
[2019-04-07] MEDS: HYDROCORTISONE/PRAMOXINE 10 GM FOAM RC SCH ×4 (12:12→20:40)
--- NOTE | 2019-04-07 12:17 | NUR ---
ETOH SW met with pt who admits to long hx of alcohol abuse. Pt states the longest she has been sober is 1year. Pt states stress in her life has caused her to restart drinking. "I have cut back a lot" "I only drink 1.5 beer a day, (24oz can), I used to drink 3 a day. Pt refused alcohol resources offered, states she has done rehab in the past, "been there, done that". Pt states she is "doing it on her own" and feels that she does not need help to quit. No further SS issues at this time
--- NOTE | 2019-04-07 13:00 | NUR ---
PATIENT COMPLAINED RIGHT UPPER CHEST PAIN. PATIENT STATES FEELS LIKE A MUSCLE CHEST PAIN. NOTIFIED DR. GATICA . INFORMED DR. Manuel THAT CHEST XRAY WAS NORMAL. PATIENT STATES SHE FELL 3 YEARS FROM STAIRS AND STARTED SINCE. NO FURTHER ORDERS GIVE. PATIENT STATES LYRICA USUALLY HELPS THE PAIN.
--- NOTE | 2019-04-07 14:00 | NUR ---
PATIENT TAKEN DOWNSTAIRS FOR PARACENTISIS , AWAKE AND ALERT, VOICES NO COMPLAINTS
--- NOTE | 2019-04-07 14:00 | NUR ---
INITIAL Met w patient alone, aaox3, lives w spouse Mango who will provide transport, no dme except cane, here w + etoh on admit and signs of liver failure, counselld, declined interventions dcp is home, no dc needs expected Addendum: 04/10/19 at 0821 by ALYSSA DAVE RN CM Amended: Links added.
--- NOTE | 2019-04-07 14:30 | NUR ---
IR RN STATED THAT THERE WAS NO FLUID TO WITHDRAW. PATIENT VOICES NO COMPLAINTS.
--- NOTE | 2019-04-07 15:42 | NUR ---
RD NOTIFICATION Primary Diagnosis: Acute Respiratory Distress secondary to fluid overload. Hx: Cirrhosis, anemia, HTN, Hypothyroidism. Current diet: Heart Healthy, Fluid restriction 1500mL. BMI is 25.8; classified as overweight. PO intake is 50%. LBM: 04/07. Skin Is intact with 2+ pitting edema on lower extremity. Meds: Pepcid, Lasix, Potassium chloride. Labs: K 3.1, BNP 836, Bilirubin 2.5, Serum alcohol 186, Alb 2.9, Ca 8.2, PTT 22.6, Hgb 10.6, Hct 10.6. Pt is still retaining fluid as per nurse, only eating 50%. Pt has good appetite as per pt. RD recommends to continue current diet and fluid restriction. RD notified pt that she was on a fluid restriction diet. Pt verbalized understanding. RD will continue to monitor and follow up as needed. Please notify RD if any other nutritional concerns arise. Thank you. Addendum: 04/07/19 at [address] RD Amended: Links added.
[2019-04-07 16:00] VITALS: BP 125/72
--- NOTE | 2019-04-07 17:20 | NUR ---
NOTIFIED JASPAL CREASING AND CUTTING PRESS FEEDER REGARDING PATIENT HAVING RIGHT UPPER CHEST MUSCLE DISCOMFORT. NEW ORDERS GIVEN AND CREASING AND CUTTING PRESS FEEDER TO RECHECK PATIENT TOMORROW. PATIENT BP AT 125/72-87 - 19- 96 % OF ROOM AIR.
[2019-04-07] MEDS ORDERED: MORPHINE SULFATE 5 MG/ML VIAL IV PRN (17:30)
[2019-04-07] MEDS ORDERED: NITROGLYCERIN 0.4 MG SL TAB SL PRN (17:30)
[2019-04-07 17:55] LABS: CREATINE KINASE, TOTAL 27 U/L (21-232); MYOGLOBIN 40 ng/mL (10-92); TROPONIN I < 0.04 ng/mL (0.00-0.06)
--- NOTE | 2019-04-07 18:25 | NUR ---
BP AT 125/72-87 GAVE NITROSTAT 0.4 MG SL. WILL MONITOR PAIN AND DISCOMFORT.
--- NOTE | 2019-04-07 18:31 | NUR ---
GAVE MORPHINE 2 MG WILL MONITOR PAIN.
--- NOTE | 2019-04-07 19:39 | NUR ---
MORPHINE AND NITROSTAT EFFECTIVE FOR PAIN REPORT GIVEN TO ONCOMING NURSE TO CONTINUE MONITORING .
[2019-04-07 20:00] VITALS: BP 126/71
[2019-04-07] MEDS: PREGABALIN 75 MG CAPSULE PO SCH (20:26)
[2019-04-07] MEDS: SPIRONOLACTONE 25 MG TAB PO SCH (20:26)
[2019-04-07] MEDS: PROPRANOLOL HCL 20 MG TAB PO SCH (20:26)
[2019-04-07] MEDS: RIFAXIMIN 550 MG TABLET PO SCH (20:26)
[2019-04-07 23:35] VITALS: BP 119/72
[2019-04-08] MEDS: FUROSEMIDE 10 MG/ML 2ML VIAL IV SCH ×3 (01:51→18:22)
[2019-04-08] MEDS: LACTULOSE 20 GM/30 ML UDCUP PO SCH ×3 (01:51→18:21)
[2019-04-08 03:30] VITALS: BP 99/65
[2019-04-08 04:47] LABS: BASOPHILS % (AUTO) 0.6 % (0.0-5.0); EOSINOPHILS % (AUTO) 1.1 % (0.0-8.0); HEMATOCRIT 34.7 % (36-48); LYMPHOCYTES % (AUTO) 20.4 % (21.0-51.0); MEAN CORPUSCULAR HEMOGLOBIN 25.2 pg (27.0-33.0); MEAN CORPUSCULAR HGB CONC 31.1 g/dL (32.0-36.0); MEAN CORPUSCULAR VOLUME 81.1 fL (79-99); MONOCYTES % (AUTO) 7.8 % (3.0-13.0); NEUTROPHILS % (AUTO) 70.1 % (40.0-77.0); NUCLEATED RED BLOOD CELLS 0.1 % (0.0-0.19); PLATELET COUNT (AUTO) 31 K/uL (130-400); RED BLOOD CELL COUNT(AUTO) 4.28 MIL/uL (4.00-5.50); RED CELL DISTRIBUTION WIDTH 24.2 % (11.0-15.5); WHITE BLOOD COUNT (AUTO) 6.9 K/uL (4.8-10.8)
[2019-04-08 04:56] LABS: CREATININE 0.7 mg/dL (0.5-1.5)
[2019-04-08 05:06] LABS: POTASSIUM 2.8 mmol/L (3.5-5.1)
[2019-04-08] MEDS ORDERED: MAGNESIUM 2GM PREMIX 50ML 50 ML IV PRN (05:30)
[2019-04-08] MEDS: POTASSIUM CHLORIDE 20 MEQ ERTAB PO PRN ×4 (05:48→14:36)
[2019-04-08] MEDS: LEVOTHYROXINE 50 MCG TABLET PO SCH (05:48)
[2019-04-08 07:00] VITALS: BP 97/66
[2019-04-08] MEDS: PREGABALIN 75 MG CAPSULE PO SCH ×2 (09:15→20:20)
[2019-04-08] MEDS: SPIRONOLACTONE 25 MG TAB PO SCH ×2 (09:15→20:20)
[2019-04-08] MEDS: MULTIVITAMIN TABLET PO SCH (09:15)
[2019-04-08] MEDS: HYDROCORTISONE/PRAMOXINE 10 GM FOAM RC SCH ×4 (09:15→20:19)
[2019-04-08] MEDS: FOLIC ACID 1 MG TABLET PO SCH (09:16)
[2019-04-08] MEDS: HYDROXYZINE HCL 25 MG TABLET PO SCH (09:17)
[2019-04-08] MEDS: PROPRANOLOL HCL 20 MG TAB PO SCH ×2 (09:17→20:20)
[2019-04-08] MEDS: FAMOTIDINE 20MG TAB 20 MG TAB PO SCH ×2 (09:17→20:20)
[2019-04-08] MEDS: THIAMINE HCL 100 MG/ML 2ML VIAL IM SCH (09:17)
[2019-04-08] MEDS: RIFAXIMIN 550 MG TABLET PO SCH ×2 (09:17→20:20)
[2019-04-08] MEDS: KETOROLAC TROMETHAMINE 15MG/ML IV PRN ×2 (09:54→18:23)
[2019-04-08] MEDS: LIDOCAINE 5% TOPICAL PATCH TP SCH (09:56)
[2019-04-08 11:00] VITALS: BP 91/63
[2019-04-08 16:00] VITALS: BP 91/59
[2019-04-08 20:00] VITALS: BP 94/57
--- NOTE | 2019-04-08 21:05 | NUR ---
PM NOTE Awake, alert, and oriented x3. Denies any shortness of breath or pain. Sinus mechanism in 80s on telemetry monitoring. Call brambila within reach.
[2019-04-08 23:54] VITALS: BP 97/65
[2019-04-09] MEDS: LACTULOSE 20 GM/30 ML UDCUP PO SCH ×3 (02:55→18:01)
[2019-04-09] MEDS: FUROSEMIDE 10 MG/ML 2ML VIAL IV SCH ×3 (02:55→17:59)
[2019-04-09 04:14] VITALS: BP 97/62
[2019-04-09 04:41] LABS: BASOPHILS % (AUTO) 2.1 % (0.0-5.0); EOSINOPHILS % (AUTO) 1.3 % (0.0-8.0); HEMATOCRIT 38.4 % (36-48); LYMPHOCYTES % (AUTO) 25.9 % (21.0-51.0); MEAN CORPUSCULAR HEMOGLOBIN 25.5 pg (27.0-33.0); MEAN CORPUSCULAR HGB CONC 31.7 g/dL (32.0-36.0); MEAN CORPUSCULAR VOLUME 80.3 fL (79-99); MONOCYTES % (AUTO) 11.2 % (3.0-13.0); NEUTROPHILS % (AUTO) 59.5 % (40.0-77.0); NUCLEATED RED BLOOD CELLS 0.1 % (0.0-0.19); PLATELET COUNT (AUTO) 38 K/uL (130-400); RED BLOOD CELL COUNT(AUTO) 4.78 MIL/uL (4.00-5.50); RED CELL DISTRIBUTION WIDTH 25.2 % (11.0-15.5); WHITE BLOOD COUNT (AUTO) 7.5 K/uL (4.8-10.8)
[2019-04-09 04:50] LABS: CREATININE 1.2 mg/dL (0.5-1.5); MAGNESIUM 2.2 mg/dL (1.80-2.40); POTASSIUM 3.7 mmol/L (3.5-5.1)
[2019-04-09] MEDS: LEVOTHYROXINE 50 MCG TABLET PO SCH (05:40)
[2019-04-09] MEDS: POTASSIUM CHLORIDE 20 MEQ ERTAB PO PRN (05:41)
[2019-04-09 07:00] VITALS: BP 98/58
[2019-04-09] MEDS: KETOROLAC TROMETHAMINE 15MG/ML IV PRN (09:39)
[2019-04-09] MEDS: LIDOCAINE 5% TOPICAL PATCH TP SCH (09:39)
[2019-04-09] MEDS: THIAMINE HCL 100 MG/ML 2ML VIAL IM SCH (09:40)
[2019-04-09] MEDS: RIFAXIMIN 550 MG TABLET PO SCH ×2 (09:41→21:21)
[2019-04-09] MEDS: PROPRANOLOL HCL 20 MG TAB PO SCH ×2 (09:41→21:21)
[2019-04-09] MEDS: MULTIVITAMIN TABLET PO SCH (09:42)
[2019-04-09] MEDS: PREGABALIN 75 MG CAPSULE PO SCH ×2 (09:42→21:21)
[2019-04-09] MEDS: HYDROXYZINE HCL 25 MG TABLET PO SCH (09:42)
[2019-04-09] MEDS: SPIRONOLACTONE 25 MG TAB PO SCH ×2 (09:43→21:21)
[2019-04-09] MEDS: FAMOTIDINE 20MG TAB 20 MG TAB PO SCH ×2 (09:43→21:21)
[2019-04-09] MEDS: FOLIC ACID 1 MG TABLET PO SCH (09:43)
[2019-04-09] MEDS: HYDROCORTISONE/PRAMOXINE 10 GM FOAM RC SCH ×4 (09:44→21:00)
[2019-04-09 11:00] VITALS: BP 89/50
[2019-04-09 16:00] VITALS: BP 83/51
[2019-04-09 20:00] VITALS: BP 94/72
[2019-04-10] VITALS: BP 99/61
[2019-04-10] MEDS: LACTULOSE 20 GM/30 ML UDCUP PO SCH ×2 (03:25→10:11)
[2019-04-10] MEDS: FUROSEMIDE 10 MG/ML 2ML VIAL IV SCH ×2 (03:26→10:11)
[2019-04-10 04:00] VITALS: BP 94/50
[2019-04-10 05:36] LABS: CREATININE 0.8 mg/dL (0.5-1.5); POTASSIUM 4.4 mmol/L (3.5-5.1)
[2019-04-10] MEDS: LEVOTHYROXINE 50 MCG TABLET PO SCH (05:49)
[2019-04-10 06:20] LABS: HEMATOCRIT 43.4 % (36-48); MEAN CORPUSCULAR HEMOGLOBIN 25.4 pg (27.0-33.0); MEAN CORPUSCULAR HGB CONC 30.8 g/dL (32.0-36.0); MEAN CORPUSCULAR VOLUME 82.4 fL (79-99); NUCLEATED RED BLOOD CELLS 0.2 % (0.0-0.19); PLATELET COUNT (AUTO) 38 K/uL (130-400); RED BLOOD CELL COUNT(AUTO) 5.27 MIL/uL (4.00-5.50); RED CELL DISTRIBUTION WIDTH 25.2 % (11.0-15.5); WHITE BLOOD COUNT (AUTO) 7.7 K/uL (4.8-10.8)
[2019-04-10 07:30] VITALS: BP 107/69
[2019-04-10] MEDS: THIAMINE HCL 100 MG/ML 2ML VIAL IM SCH (08:18)
[2019-04-10] MEDS: HYDROXYZINE HCL 25 MG TABLET PO SCH (08:18)
[2019-04-10] MEDS: PROPRANOLOL HCL 20 MG TAB PO SCH (08:18)
[2019-04-10] MEDS: FOLIC ACID 1 MG TABLET PO SCH (08:18)
[2019-04-10] MEDS: SPIRONOLACTONE 25 MG TAB PO SCH (08:18)
[2019-04-10] MEDS: MULTIVITAMIN TABLET PO SCH (08:18)
[2019-04-10] MEDS: FAMOTIDINE 20MG TAB 20 MG TAB PO SCH (08:19)
[2019-04-10] MEDS: PREGABALIN 75 MG CAPSULE PO SCH (08:19)
[2019-04-10] MEDS: LIDOCAINE 5% TOPICAL PATCH TP SCH (08:19)
[2019-04-10] MEDS: RIFAXIMIN 550 MG TABLET PO SCH (08:19)
[2019-04-10] MEDS: HYDROCORTISONE/PRAMOXINE 10 GM FOAM RC SCH ×2 (08:21→12:57)
[2019-04-10 11:00] VITALS: BP 94/67
--- NOTE | 2019-04-10 14:35 | NUR ---
INSTRUCTIONS DISCHARGE INSTRUCTIONS GIVEN TO PATIENT USING TEACH BACK. F/U APPOINTMENT WILL BE MADE BY PATIENT DURING REGULAR BUSINESS HOURS SINCE OFFICE IS CLOSED FOR THE WEEKEND. NO NEW PRESCRIPTIONS. IV WAS REMOVED WITH TIP INTACT. DIRECT PRESSURE APPLIED UNTIL BLEEDING CONTROLLED THEN SITE COVERED WITH GAUZE AND SECURED WITH A BAND-AID. NO QUESTIONS OR CONCERNS VOICED. PENDING RIDE HOME.
--- NOTE | 2019-04-10 15:29 | NUR ---
TRANSPORT PATIENT BEING TRANSFERRED TO PRIVATE VEHICLE BY KRISSY BUCKLEY. ALL PERSONAL BELONGINGS WITH PATIENT. NO QUESTIONS OR CONCERNS VOICED.
[2019-04-10 16:00] VITALS: BP 94/67
== END 2019-04-10 16:35 | disposition home or self-care (01) | DRG 133 ==
LOC: EDH 20:57 → OBSVTOIN 20:58 → EDHIP 20:58 → 3CH 04-07 02:10
PROVIDERS: ADMIT Hospitalist; ATTEND Hospitalist
DX: J96.01 Acute respiratory failure with hypoxia (principal); E43 Unspecified severe protein-calorie malnutrition; J81.0 Acute pulmonary edema; D69.6 Thrombocytopenia, unspecified; E87.70 Fluid overload, unspecified; E83.42 Hypomagnesemia; K70.31 Alcoholic cirrhosis of liver with ascites; D64.9 Anemia, unspecified; E87.6 Hypokalemia; E03.9 Hypothyroidism, unspecified; F10.10 Alcohol abuse, uncomplicated; F32.9 Major depressive disorder, single episode, unspecified; I10 Essential (primary) hypertension; Z68.26 Body mass index [BMI] 26.0-26.9, adult; Z88.0 Allergy status to penicillin; Z80.9 Family history of malignant neoplasm, unspecified; Z82.49 Family history of ischemic heart disease and other diseases of the circulatory system
CPT/HCPCS: 36415; 71045; 73020; 76705; 80048; 80053; 80305; 81001; 82140; 82150; 82550; 83690; 83735; 83874; 83880; 84132; 84484; 85025; 85027; 85610; 85730; 93005; G0378; G0480; J1885; J1940; J2270; J3411; J3475; J3480; J3490